=== PATIENT | female | born 1970 | race Caucasian/White ===

== ENCOUNTER 2020-06-15 12:20 | Emergency (ER) | payer OTHER, SELFPAY ==
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
== END 2020-06-15 13:09 | disposition home or self-care (01) ==
PROVIDERS: Emergency Provider Nurse Practitioner; PCP Family Medicine
DX: S00.33XA Contusion of nose, initial encounter (principal); W20.8XXA Other cause of strike by thrown, projected or falling object, initial encounter
CPT/HCPCS: 99212; G0463